=== PATIENT | male | born 1960 ===

== ENCOUNTER 2017-05-23 03:14 | Observation (INO) | payer MEDICAID ==
[2017-05-23 03:15] VITALS: BMI 26.6
--- NOTE | 2017-05-23 03:43 | ED PDOC ---
HPI: Psych/Substance Abuse Time Seen by Provider: 05/23/17 03:27 Chief Complaint (Provider): Upset because he relapsed - ED Caveat: Acuity of Condition History Per: Patient History/Exam Limitations: no limitations Onset/Duration Of Symptoms: Days Current Symptoms Are (Timing): Still Present Additional Complaint(s): Pt states he was a recoving alcoholic and relapsed 3 months ago when his brother . Pt states he wants help. Pt denies SI/HI in ER. Pt is calm and cooperative. Past Medical History Reviewed: Historical Data, Nursing Documentation, Vital Signs - Medical History PMH: Anxiety, Depression Denies: Diabetes, Hepatitis, HIV, HTN, Chronic Kidney Disease, Seizures, Sexually Transmitted Disease - Surgical History Surgical History: No Surg Hx - Family History Family History: States: Unknown Family Hx - Living Arrangements Living Arrangements: With Family - Social History Current smoker - smoking cessation education provided: No Alcohol: > 2 Drinks/Day Drugs: Denies - Immunization History Hx Tetanus Toxoid Vaccination: No Hx Influenza Vaccination: No Hx Pneumococcal Vaccination: No - Allergies Allergies/Adverse Reactions: Allergies Allergy/AdvReac Type Severity Reaction Status Date / Time No Known Allergies Allergy Verified 05/23/17 03:27 Review of Systems ROS Statement: Except As Marked, All Systems Reviewed And Found Negative Psych: Positive for: Depression, Withdrawal Physical Exam - Reviewed Nursing Documentation Reviewed: Yes Vital Signs Reviewed: Yes - Physical Exam Appears: Positive for: Well, Non-toxic, No Acute Distress Head Exam: Positive for: ATRAUMATIC, NORMAL INSPECTION, NORMOCEPHALIC Skin: Positive for: Normal Color, Warm, DRY Eye Exam: Positive for: Normal appearance ENT: Positive for: Normal ENT Inspection Neck: Positive for: Normal, Painless ROM Cardiovascular/Chest: Positive for: Regular Rate, Rhythm Respiratory: Positive for: CNT, Normal Breath Sounds Gastrointestinal/Abdominal: Positive for: Normal Exam, Bowel Sounds, Soft Back: Positive for: Normal Inspection Extremity: Positive for: Normal ROM Neurologic/Psych: Positive for: Alert, Oriented - Laboratory Results Result Diagrams: 05/23/17 03:55 05/23/17 03:55 Medical Decision Making Medical Decision Making: Endorsed pending crisis evaluation and sobriety. Disposition - Clinical Impression Clinical Impression: Alcohol abuse, Depression - Patient ED Disposition Is Patient to be Admitted: Transfer of Care Counseled Patient/Family Regarding: Diagnosis, Need For Followup - Disposition Disposition: Transfer of Care Disposition Time: 05:46 Condition: GOOD
[2017-05-23 03:44] VITALS: RESP 18
[2017-05-23 04:08] LABS: HEMATOCRIT 43.2 % (35.0-51.0); MEAN CELL VOLUME 88.8 fl (80.0-94.0); MEAN CORPUSCULAR HEMOGLOBIN 30.9 pg (27.0-31.0); MEAN CORPUSCULAR HGB CONC 34.8 g/dL (33.0-37.0); RBC URINE 1 /hpf (0-3); RED CELL DISTRIBUTION WIDTH 15.9 % (11.5-14.5); URINE BILIRUBIN NEGATIVE (NEGATIVE); URINE BLOOD SMALL (NEGATIVE); URINE COLOR STRAW (YELLOW); URINE GLUCOSE (UA) NEG (Normal); URINE KETONE NEGATIVE (NEGATIVE); URINE LEUKOCYTE ESTERASE NEG Leu/uL (Negative); URINE PROTEIN NEGATIVE (NEGATIVE); URINE UROBILINOGEN 0.2-1.0 mg/dL (0.2-1.0); WHITE BLOOD COUNT 6.5 K/uL (4.8-10.8)
[2017-05-23 04:19] LABS: ALB/GLOB RATIO 1.3 (1.0-2.1); ALKALINE PHOSPHATASE 92 U/L (38-126); ALT/SGPT 121 U/L (21-72); AST/SGOT 134 U/L (17-59); BILIRUBIN,TOTAL 0.7 mg/dl (0.2-1.3); BLOOD UREA NITROGEN 8 mg/dl (9-20); CARBON DIOXIDE 23 mmol/L (22-30); CHLORIDE 102 mmol/L (98-107); GFR AFRICAN-AMERICAN > 60; GLUCOSE,RANDOM 113 mg/dL (75-110); POTASSIUM 3.8 MMOL/L (3.6-5.0); SODIUM 141 mmol/l (132-148)
[2017-05-23 04:34] LABS: ALCOHOL SERUM 425 mg/dl (0-10)
--- NOTE | 2017-05-23 06:08 | ED PDOC ---
- Laboratory Results Result Diagrams: 05/23/17 03:55 05/23/17 03:55 - ECG O2 Sat by Pulse Oximetry: 98 Medical Decision Making Medical Decision Makin: Patient signed over to me from Eileen Garcia PA-C. pending crisis evaluation and sobriety. 07: Patient will be signed out to Dr. Keller pending crisis evaluation and sobriety. Patient stable. Scribe Attestation: Documented by Juana Valdez acting as a scribe for Jonathan Hope MD. Provider Scribe Attestation: All medical record entries made by the Scribe were at my direction and personally dictated by me. I have reviewed the chart and agree that the record accurately reflects my personal performance of the history, physical exam, medical decision making, and the department course for this patient. I have also personally directed, reviewed, and agree with the discharge instructions and disposition. Disposition - Clinical Impression Clinical Impression: Alcohol abuse, Depression - POA Present On Arrival: None - Disposition Disposition: Transfer of Care Disposition Time: 07:00 Condition: GOOD Patient Signed Over To: Gregory Keller Handoff Comments: Pending crisis evaluation and sobriety.
[2017-05-23 08:25] VITALS: TEMP 97.9
--- NOTE | 2017-05-23 11:14 | ED PDOC ---
- Laboratory Results Result Diagrams: 05/23/17 03:55 05/23/17 03:55 - ECG O2 Sat by Pulse Oximetry: 99 - Progress Re-evaluation Time: 11:13 Condition: Improved (Awake alert oriented x 3 Denies SI/HI) Disposition - Clinical Impression Clinical Impression: Alcohol abuse, Depression - POA Present On Arrival: None - Disposition Disposition: Routine/Home Disposition Time: 11:13 Condition: GOOD
[2017-05-23 12:55] VITALS: BP 109/65; PULSE 100; O2SAT 96
== END 2017-05-23 13:52 | disposition home or self-care (01) ==
LOC: H.ER 03:14 → H.EROBSV 05:44
PROVIDERS: ADMIT Emergency Medicine; ATTEND Emergency Medicine
DX: F10.10 Alcohol abuse, uncomplicated (principal); F32.9 Major depressive disorder, single episode, unspecified; F41.9 Anxiety disorder, unspecified

== ENCOUNTER 2017-08-03 16:18 | Emergency (ER) | payer MEDICAID ==
[2017-08-03 16:18] VITALS: BMI 26.6
[2017-08-03 16:29] VITALS: BP 147/83; PULSE 99; RESP 16; TEMP 97.8; O2SAT 98
== END 2017-08-03 16:50 | disposition left against medical advice (07) ==
LOC: H.ER 16:18
DX: Z02.89 Encounter for other administrative examinations (principal)

== ENCOUNTER 2017-08-03 16:46 | Emergency (ER) | payer MEDICAID ==
[2017-08-03 16:46] VITALS: BMI 26.6
[2017-08-03 16:50] VITALS: BP 150/79; PULSE 93; RESP 16; TEMP 98; O2SAT 98
--- NOTE | 2017-08-03 17:13 | ED PDOC ---
HPI: Wound Care - HPI Time Seen by Provider: 08/03/17 16:48 Chief Complaint (Nursing): Suture/Staple Removal Chief Complaint (Provider): Staple removal History Per: Patient Additional Complaint(s): Pt presents to the ED for staple removal to laceration repaired on scalp. Pt had nilesh placed at [facility] approximately 15 days ago. Past Medical History Reviewed: Nursing Documentation, Vital Signs Vital Signs: Last Vital Signs Temp 98 F 08/03/17 16:47 Pulse 93 H 08/03/17 16:47 Resp 16 08/03/17 16:47 BP 150/79 08/03/17 16:47 Pulse Ox 98 08/03/17 16:47 - Medical History PMH: Anxiety, Depression Denies: Diabetes, Hepatitis, HIV, HTN, Chronic Kidney Disease, Seizures, Sexually Transmitted Disease - Surgical History Surgical History: No Surg Hx - Family History Family History: States: Unknown Family Hx - Living Arrangements Living Arrangements: With Family - Social History Current smoker - smoking cessation education provided: No Alcohol: Social Drugs: Denies - Immunization History Hx Tetanus Toxoid Vaccination: No Hx Influenza Vaccination: No Hx Pneumococcal Vaccination: No - Home Medications Home Medications: Ambulatory Orders Medication Instructions Recorded Multivitamins [Hexavitamin] 1 tab PO DAILY #30 tab 06/07/17 Ibuprofen [Motrin] 600 mg PO Q6 #10 tab 08/03/17 - Allergies Allergies/Adverse Reactions: Allergies Allergy/AdvReac Type Severity Reaction Status Date / Time milk Allergy Verified 06/01/17 21:28 Review of Systems ROS Statement: Except As Marked, All Systems Reviewed And Found Negative Skin: Positive for: Other (laceration repair) Physical Exam - Reviewed Nursing Documentation Reviewed: Yes Vital Signs Reviewed: Yes - Physical Exam Appears: Positive for: Well, Non-toxic, No Acute Distress Head Exam: Positive for: ATRAUMATIC, NORMAL INSPECTION, NORMOCEPHALIC Skin: Positive for: Normal Color, Warm, DRY Eye Exam: Positive for: EOMI, Normal appearance, PERRL ENT: Positive for: Normal ENT Inspection Neck: Positive for: Normal, Painless ROM Cardiovascular/Chest: Positive for: Regular Rate, Rhythm Respiratory: Positive for: CNT, Normal Breath Sounds Gastrointestinal/Abdominal: Positive for: Normal Exam, Bowel Sounds, Soft Neurologic/Psych: Positive for: Alert, Oriented Comments: scalp: laceration repaired [address] no surrounding edema, erythema - ECG O2 Sat by Pulse Oximetry: 98 Medical Decision Making Medical Decision Making: [place] removed by mortgage or loan underwriter without difficulty Wound care discussed Disposition - Clinical Impression Clinical Impression: Removal of suture - Patient ED Disposition Is Patient to be Admitted: No - Disposition Disposition: Routine/Home Disposition Time: 17:13 Condition: STABLE Prescriptions: Ibuprofen [Motrin] 600 mg PO Q6 #10 tab Instructions: Stitches Removal (ED) Forms: [employer] (Indonesian)
== END 2017-08-03 17:00 | disposition home or self-care (01) ==
LOC: H.ER 16:46
DX: Z48.02 Encounter for removal of sutures (principal)

== ENCOUNTER 2017-09-14 04:04 | Emergency (ER) | payer MEDICAID ==
[2017-09-14 04:04] VITALS: BMI 26.6
[2017-09-14 04:22] VITALS: RESP 18; O2SAT 96
--- NOTE | 2017-09-14 05:15 | ED PDOC ---
HPI: Psych/Substance Abuse Time Seen by Provider: 09/14/17 04:15 Chief Complaint (Nursing): Alcohol Ingestion Chief Complaint (Provider): Alcohol Intoxication History Per: Patient History/Exam Limitations: no limitations Onset/Duration Of Symptoms: Hrs (2 hours go) Current Symptoms Are (Timing): Still Present Additional History Per: EMS (brought in by EMS), Family ( called EMS to grain picker ) Additional Complaint(s): Percy Swann is 57 y/o male with a history of alcoholism and depression, brought in by EMS after receiving a phone from the patient's , presents to the ED complaining of alcohol intoxication. While the was the phone with EMS, she reported that the patient was becoming intoxicated and becoming very agitated at home. When the patient finally arrived at the hospital, he was requesting a detox in order to combat the alcohol, however, the hospital does not provide detoxes. In turn, the patient will be referred to [facility] in order to get the patient a detox. Past Medical History Reviewed: Historical Data, Nursing Documentation, Vital Signs Vital Signs: Last Vital Signs Temp 97.5 F L 09/14/17 04:10 Pulse 112 H 09/14/17 04:10 Resp 18 09/14/17 04:10 BP 165/101 H 09/14/17 04:10 Pulse Ox 96 09/14/17 04:10 - Medical History PMH: Anxiety, Depression Denies: Diabetes, Hepatitis, HIV, HTN, Chronic Kidney Disease, Seizures, Sexually Transmitted Disease - Surgical History Surgical History: No Surg Hx - Family History Family History: States: Unknown Family Hx - Living Arrangements Living Arrangements: With Family - Social History Current smoker - smoking cessation education provided: No Alcohol: > 2 Drinks/Day Drugs: Denies - Immunization History Hx Tetanus Toxoid Vaccination: No Hx Influenza Vaccination: No Hx Pneumococcal Vaccination: No - Home Medications Home Medications: Ambulatory Orders Medication Instructions Recorded No Known Home Med 09/15/17 - Allergies Allergies/Adverse Reactions: Allergies Allergy/AdvReac Type Severity Reaction Status Date / Time milk Allergy Verified 06/01/17 21:28 Review of Systems ROS Statement: Except As Marked, All Systems Reviewed And Found Negative Constitutional: Negative for: Fever Psych: Negative for: Other (Homicidal Ideation) Physical Exam - Reviewed Nursing Documentation Reviewed: Yes Vital Signs Reviewed: Yes - Physical Exam Cardiovascular/Chest: Positive for: Regular Rate, Rhythm. Negative for: Murmur Respiratory: Positive for: Normal Breath Sounds. Negative for: Respiratory Distress Gastrointestinal/Abdominal: Positive for: Normal Exam, Soft. Negative for: Tenderness - ECG O2 Sat by Pulse Oximetry: 96 (RA) Pulse Ox Interpretation: Normal Medical Decision Making Medical Decision Making: Time: 04:50 Impression: ETOH Intoxication Plan: --Alcohol Serum Stat -- -- Reassess: pt referred to crisis eval Refer patient to [facility] in order to provide patient with detox. Time: 07:00 Patient to be signed out to Dr. Arteaga pending sobriety and crisis Scribe Attestation: Documented by Titi Zambrano, acting as a scribe for Surjit Figueroa MD. Provider Scribe Attestation: All medical record entries made by the Scribe were at my direction and personally dictated by me. I have reviewed the chart and agree that the record accurately reflects my personal performance of the history, physical exam, medical decision making, and the department course for this patient. I have also personally directed, reviewed, and agree with the discharge instructions and disposition. Disposition - Clinical Impression Clinical Impression: Alcohol abuse - Patient ED Disposition Is Patient to be Admitted: No Counseled Patient/Family Regarding: Studies Performed, Diagnosis, Need For Followup - Disposition Disposition: Routine/Home Disposition Time: 07:00 Condition: IMPROVED
--- NOTE | 2017-09-14 07:17 | ED PDOC ---
- ECG O2 Sat by Pulse Oximetry: 96 (RA) Medical Decision Making Medical Decision Makin -Patient transferred to [facility] by Dr. Figueroa. Pending sobriety and crisis. 1515: Stable. Pt. not seen in room. Per nurse, pt. possibly escaped. Last seen 1200 pt. was more awake. Tolerated PO. Ambulated with the bathroom with no issues. Disposition - Clinical Impression Clinical Impression: Alcohol abuse - POA Present On Arrival: None - Disposition Disposition: Left W/O Treatment Disposition Time: 15:15 Condition: FAIR
[2017-09-14 15:30] VITALS: BP 132/74; PULSE 87; TEMP 98.6
== END 2017-09-14 15:00 | disposition left against medical advice (07) ==
LOC: H.ER 04:04
DX: F10.129 Alcohol abuse with intoxication, unspecified (principal); F32.9 Major depressive disorder, single episode, unspecified; F41.9 Anxiety disorder, unspecified